=== PATIENT | female | born 1995 ===

== ENCOUNTER 2019-02-06 15:09 | Observation (INO) ==
[2019-02-06] MEDS ORDERED: 0.9 % SODIUM CHLORIDE 1,000 ML IV ONE ×2 (15:47→17:08)
--- NOTE | 2019-02-06 15:49 | Emergency Department Note ---
Abdominal Pain HPI - General Chief Complaint: Abdominal Pain Stated Complaint: ruq abd pain Time Seen by Provider: 02/06/19 15:47 Source: patient Mode of arrival: wheelchair Limitations: no limitations - History of Present Illness HPI Narrative: 23-year-old female with known cholelithiasis presenting 1 day after being seen at [facility] ER with right upper quadrant abdominal pain, nausea, vomiting 1, evaluated in the ER with CBC within normal white blood cell count, pain controlled with acute pain medications in the ER, discharged home in fair condition presenting today with worsening right upper quadrant abdominal pain rated 9 out of 10 with any activity, 6 out of 10 at rest worsened roughly 30-45 minutes after eating. Patient has nausea no emesis present. No fevers, chills, sweats. No diarrhea present. No other symptoms present. Cholelithiasis diagnosed during most recent . - Related Data Home Medications Medication Instructions Recorded Confirmed traMADol HCL [Ultram] 50 mg PO Q6H PRN 02/06/19 02/06/19 Allergies Allergy/AdvReac Type Severity Reaction Status Date / Time Pineapple Allergy Verified 02/06/19 15:11 hydromorphone [From Dilaudid] AdvReac Mild Itching Verified 02/06/19 17:07 ADHESIVES Allergy Unknown HIVES Uncoded 03/02/15 19:21 Review of Systems All systems ED: reviewed and negative except as stated. Abdominal Pain PMH - Past Medical History Attestation: Yes: The following information was validated with the patient. Medical history: Reports: other (cholelithiasis) - Social History Smoking status: Never smoker Physical Exam Limitations: no limitations General appearance: alert, anxious, in no apparent distress Head: atraumatic, normocephalic Eye: Present: normal appearance, PERRL, EOMI ENT: normal exam, normal oropharynx, mucous membranes moist Neck: Present: normal inspection, full ROM Chest: Present: normal inspection, symmetric chest wall rise Respiratory: Present: normal lung sounds bilaterally. Absent: respiratory distress, rales/crackles, wheezes Cardiovascular: Present: regular rate, normal rhythm, normal heart sounds Abdominal: Present: soft, tenderness, rebound, normal bowel sounds, Goodman's sign. Absent: distention, guarding, rigidity Course Vital Signs Temperature 98.9 F 02/06/19 15:09 Pulse Rate 89 02/06/19 15:09 Respiratory Rate 14 02/06/19 15:09 Blood Pressure 119/83 02/06/19 15:09 Pulse Oximetry (%) 97 02/06/19 15:09 Temperature 98.9 F 02/06/19 15:09 Pulse Rate 89 02/06/19 16:10 Respiratory Rate 14 02/06/19 15:09 Blood Pressure 127/80 02/06/19 16:01 Pulse Oximetry (%) 96 02/06/19 16:10 Abdominal Pain - MDM Narrative Medical decision making narrative: Patient underwent right upper quadrant abdominal ultrasound which demonstrated thickened GB wall and presence of multiple calculi. Underwent CBC with no leukocytosis. However based on failed outpatient tolerance of RUQ abdominal pain, general surgery consulted. patient admitted to surgical services for plans for cholecystectomy admitted in stable condition. - Lab Data Result diagrams: 02/06/19 15:59 02/06/19 15:59 Lab Results 02/06/19 02/06/19 02/06/19 Range/Units 15:41 15:59 15:59 WBC 4.4 L (4.5-11.0) K/mcL RBC 4.67 (4.00-5.20) M/mcL Hgb 14.7 (12.0-15.0) g/dL Hct 42.9 (36.0-48.0) % MCV 92.0 (80.0-100.0) fL MCH 31.6 (26.0-34.0) pg MCHC 34.3 (31.0-36.0) g/dL RDW 12.7 (11.5-14.5) % Plt Count 161 (140-440) K/mcL MPV 7.0 L (7.4-10.4) fL Gran % 64.2 (38.0-78.0) % Lymph % (Auto) 27.4 (15.5-49.0) % [place] % (Auto) 7.8 (1.0-12.0) % Eos % (Auto) 0.5 (0.0-7.0) % Baso % (Auto) 0.1 (0.0-2.0) % Gran # 2.8 (1.8-8.0) K/mcL Lymph # (Auto) 1.2 L (1.5-4.8) K/mcL Fannin # (Auto) 0.3 (0.1-0.9) K/mcL Eos # (Auto) 0 (0.0-0.7) K/mcL Baso # (Auto) 0 (0.0-0.3) K/mcL Sodium 137 (133-145) mmol/L Potassium 3.8 (3.3-5.1) mmol/L Chloride 105 (96-108) mmol/L Carbon Dioxide 20 L (22-30) mmol/L Anion Gap 12.0 (8-16) BUN 5 L (6-20) mg/dl Creatinine 0.6 (0.6-1.1) mg/dl GFR Calculation 128 Glucose 98 (70-105) mg/dL Calcium 9.0 (8.6-10.4) mg/dl Total Bilirubin 2.3 H (0.0-1.0) mg/dL AST 167 H (0-37) U/l ALT 164 H (0-40) U/l Alkaline Phosphatase 114 (39-117) U/L Total Protein 7.0 (5.9-8.4) gm/dL Albumin 4.3 (3.2-5.2) gm/dL Globulin 2.7 (2.2-3.7) gm/dL Albumin/Globulin Ratio 1.6 (1.0-2.3) Urine Color [place] Urine Appearance Hazy Urine pH 5.0 (5.0-9.0) Ur Specific [place] 1.021 (1.000-1.035) Urine Protein Neg (NEG) mg/dL Urine Glucose (UA) Negative (NEG) mg/dL Urine Ketones 5/tr A (NEG) mg/dL Urine Occult Blood Neg (<0.03) mg/dL Urine Nitrate Neg (NEG) Urine Bilirubin Neg (NEG) mg/dL Urine Urobilinogen Neg (NEG) mg/dL Ur Leukocyte Esterase Neg (NEG) /uL Urine RBC < 1 (0-1) /hpf Urine WBC 3 (0-4) /hpf Ur Squamous Epith Cells 2 (0-4) /hpf Urine Bacteria 0 (0) /hpf Urine Mucus Few (0) /hpf Ur Culture Indicated? No - Radiology Data Radiology results reviewed: Yes I reviewed the patient's radiology results. Gallbladder is not distended. There are multiple small stones in the dependent portion of the gallbladder. Gallbladder wall may be mildly thickened but this may also be a function of lack of distention. Gallbladder wall measures 3.5 mm. There is no pericholecystic fluid. Disposition Pt seen by FARM OPERATOR/PA only: No Clinical Impression: Acute cholecystitis Disposition: Xfer As Outpt/Obs ([facility]) Condition: Good
[2019-02-06] MEDS ORDERED: ONDANSETRON 4 MG/2 ML VIAL IV ONE ×2 (15:52→16:51)
[2019-02-06] MEDS ORDERED: HYDROmorphone 2 MG/ML VIAL IV PRN ×2 (15:52→17:05)
[2019-02-06 16:24] LABS: Appearance,Urine HAZY; Bacteria,Urine 0 /hpf (0); Bilirubin,Urine NEG (NEG); Color,Urine AMBER; Glucose,Urine (UA) NEGATIVE (NEG); Leukocyte Esterase,Urine NEG /uL (NEG); Mucus,Urine FEW /hpf (0); Protein,Urine NEG (NEG); Specific Gravity,Urine 1.021 (1.000-1.035); Urine Blood NEG mg/dL (<0.03); Urine RBC < 1 /hpf (0-1); Urine Squamous Epithelial Cell 2 /hpf (0-4); Urine WBC 3 /hpf (0-4); Urobilinogen,Urine NEG (NEG)
[2019-02-06 16:30] LABS: Basophils # (Auto) 0 K/mcL (0.0-0.3); Basophils % (Auto) 0.1 % (0.0-2.0); Eosinophils # (Auto) 0 K/mcL (0.0-0.7); Eosinophils % (Auto) 0.5 % (0.0-7.0); Granulocytes % (Auto) 64.2 % (38.0-78.0); Lymphocytes # (Auto) 1.2 K/mcL (1.5-4.8); Lymphocytes % (Auto) 27.4 % (15.5-49.0); Mean Corpuscular HGB Conc 34.3 g/dL (31.0-36.0); Monocytes # (Auto) 0.3 K/mcL (0.1-0.9); Monocytes % (Auto) 7.8 % (1.0-12.0); Platelet Count 161 K/mcL (140-440); RBC 4.67 M/mcL (4.00-5.20); Red Cell Distribution Width 12.7 % (11.5-14.5)
[2019-02-06 16:47] LABS: ALT/SGPT 164 U/l (0-40); Albumin 4.3 gm/dL (3.2-5.2); Albumin/Globulin Ratio 1.6 (1.0-2.3); Alkaline Phosphatase 114 U/L (39-117); Blood Urea Nitrogen 5 mg/dl (6-20)
--- NOTE | 2019-02-06 16:49 | Ultrasound Report ---
CLINICAL INFORMATION: Right upper quadrant. TECHNIQUE: Routine grayscale and color flow Doppler spectral imaging COMPARISON: Most recent previous CT scan dated 10/27/2018 FINDINGS: Patient has a history of gallstones. Gallbladder is not distended. There are multiple small stones in the dependent portion of the gallbladder. Gallbladder wall may be mildly thickened but this may also be a function of lack of distention. Gallbladder wall measures 3.5 mm. There is no pericholecystic fluid. Patient was medicated and could not be assessed for sonographic Goodman's sign Common bile duct measures 4 mm. No bile duct dilatation. Normal hepatopedal portal venous flow. Liver is negative. No focal intrahepatic abnormality. No pericholecystic fluid Visualized portions of the pancreas are negative. Right kidney measures 11.3 x 5.1 x 4.2 cm. No solid or cystic mass. No hydronephrosis IMPRESSION: 1. Cholelithiasis 2. Possible thickened gallbladder wall. Gallbladder is not distended and this is not accurately assessed Interpreted and Authenticated by: Mayo Ocasio 02/06/19
[2019-02-06] MEDS ORDERED: ONDANSETRON 4 MG/2 ML VIAL IV PRN ×2 (17:06→21:53)
[2019-02-06] MEDS ORDERED: ceFAZolin 1 GM VIAL IV ONE (17:38)
[2019-02-06] MEDS ORDERED: LACTATED RINGERS 1,000 ML IV ONE (17:42)
[2019-02-06] MEDS ORDERED: PROMETHAZINE 25 MG/ML VIAL IV ONE (21:47)
[2019-02-06] MEDS ORDERED: PROMETHAZINE 25 MG/ML VIAL ONE (22:04)
[2019-02-06] MEDS: 0.9 % SODIUM CHLORIDE 1,000 ML IV SCH (22:07)
--- NOTE | 2019-02-06 22:25 | General Surg History&Physical ---
History of Present Illness Patient information: Note initiated : 02/06/19 at 10:11 pm Service Date, if different from initiated Date: [] Patient: Yony Oliva a 23 y/o F admitted on 02/06/19 for ruq abd pain. Chief Complaint: [] HPI: Ms. Oliva is a 23 year old F admitted with acute cholecystitis with cholelithiasis. The patient has known history of gallstone disease which occurred during her recent . She had one attack about 6 months ago. She had onset of severe pain in the right upper quadrant radiating through to her back with associated nausea and vomiting on yesterday. She was seen in the emergency room at [facility] and treated symptomatically. Her symptoms recurred and she came to our emergency room and because of severe symptoms, she is admitted. There is some thickening of the gallbladder wall compatible with cholecystitis. Past History Past medical history: History of thrombocytopenia , but with normal platelet count at this time. depression Past surgical history: Tonsillectomy Appendectomy 2015 Past family history: Mother age 43 with autoimmune disease. Father is 44, without illness. Grandfather with diabetes Past social history: Denies , tobacco use. Weekly alcohol use Denies drug use Medications and Allergies Home Medications Medication Instructions Recorded Confirmed Type traMADol HCL [Ultram] 50 mg PO Q6H PRN 02/06/19 02/06/19 History Allergies Allergy/AdvReac Type Severity Reaction Status Date / Time Pineapple Allergy Verified 02/06/19 15:11 hydromorphone [From Dilaudid] AdvReac Mild Itching Verified 02/06/19 17:07 ADHESIVES Allergy Unknown HIVES Uncoded 03/02/15 19:21 Exam Temp Pulse Resp BP Pulse Ox 98.5 F 74 16 110/71 96 02/06/19 18:15 02/06/19 18:15 02/06/19 19:10 02/06/19 18:15 02/06/19 18:15 - General physical appearance well developed, well nourished, no distress - Eyes PERRL, normal ocular movement - ENT normal pinna, normal nares, normal mucosa, no hearing loss, no congestion - Head Head exam IM: Present: atraumatic, normocephalic - Neck no masses, no bruits, trachea midline, no lymphadenopathy, no venous distension - Cardiovascular Cardiovascular exam IM: Present: normal rate and rhythm - Respiratory normal expansion, normal respiratory effort, clear to percussion, clear to auscultation - Abdomen Abdomen: Present: tender (tenderness in epigastrium and bilateral upper quadrants; guarding with rebound in right upper quadrant; good active bowel sounds), bowel sounds Hernia: Present: none - Genitourinary Present: normal external genitalia - Integumentary Present: no rash, no growths, no abnormal pigmentation - Neurologic Present: normal coordination, normal sensation - Musculoskeletal Present: normal gait, normal posture - Psychiatric Present: oriented to time, oriented to person, oriented to place, speech is normal, memory intact Assessment and Plan (1) Cholelithiasis and acute cholecystitis without obstruction Symptomatic treatment of pain, nausea and vomiting. Zosyn 3.375 g IV every 6 hours Schedule for laparoscopic cholecystectomy tomorrow at noon Status: Acute (2) depression Status: Acute
[2019-02-06] MEDS ORDERED: fentaNYL 100 MCG/2 ML VIAL IV ONE (22:30)
[2019-02-06] MEDS: fentaNYL 100 MCG/2 ML VIAL IV PRN (22:32)
[2019-02-06] MEDS: 0.9 % SODIUM CHLORIDE 10 ML SYRINGE IV SCH (22:42)
[2019-02-06] MEDS: PIPERACILLIN SODIUM/TAZOBACTAM 3.375 GM in DEXTROSE 5% IN WATER 50 ML IV SCH (22:57)
[2019-02-07] MEDS: PIPERACILLIN SODIUM/TAZOBACTAM 3.375 GM in DEXTROSE 5% IN WATER 50 ML IV SCH ×3 (04:28→18:59)
[2019-02-07 05:42] LABS: Basophils # (Auto) 0 K/mcL (0.0-0.3); Basophils % (Auto) 0.3 % (0.0-2.0); Eosinophils # (Auto) 0 K/mcL (0.0-0.7); Eosinophils % (Auto) 1.3 % (0.0-7.0); Granulocytes % (Auto) 43.5 % (38.0-78.0); Lymphocytes # (Auto) 1.5 K/mcL (1.5-4.8); Lymphocytes % (Auto) 47.1 % (15.5-49.0); Mean Cell Volume 93.4 fL (80.0-100.0); Mean Corpuscular HGB Conc 34.3 g/dL (31.0-36.0); Monocytes # (Auto) 0.3 K/mcL (0.1-0.9); Monocytes % (Auto) 7.8 % (1.0-12.0); Platelet Count 129 K/mcL (140-440); RBC 4.18 M/mcL (4.00-5.20); Red Cell Distribution Width 13.1 % (11.5-14.5)
[2019-02-07] MEDS: 0.9 % SODIUM CHLORIDE 10 ML SYRINGE IV SCH ×3 (06:02→21:58)
[2019-02-07 06:11] LABS: ALT/SGPT 191 U/l (0-40); Albumin 3.7 gm/dL (3.2-5.2); Albumin/Globulin Ratio 1.7 (1.0-2.3); Alkaline Phosphatase 116 U/L (39-117); Bilirubin,Direct 1.5 mg/dL (0.0-0.3); Blood Urea Nitrogen 4 mg/dl (6-20); Gamma Glutamyl Transpeptidase 150 U/L (5-36)
[2019-02-07] MEDS ORDERED: diphenhydrAMINE 50 MG/ML VIAL IV PRN (10:39)
[2019-02-07] MEDS ORDERED: PROMETHAZINE 25 MG/ML VIAL IV PRN (10:39)
[2019-02-07] MEDS ORDERED: NALOXONE HCL 0.4 MG/ML VIAL IV PRN (10:39)
[2019-02-07] MEDS ORDERED: BENZOCAINE/MENTHOL 1 LOZENGE PO PRN (10:39)
[2019-02-07] MEDS ORDERED: MEPERIDINE 25 MG/ML SYRINGE IV PRN (10:39)
[2019-02-07] MEDS ORDERED: ONDANSETRON 4 MG/2 ML VIAL IV PRN (10:39)
[2019-02-07] MEDS ORDERED: LACTATED RINGERS 250 ML IV PRN (10:39)
[2019-02-07] MEDS ORDERED: IPRATROPIUM/ALBUTEROL 3 ML AMPUL.NEB NEB PRN (10:39)
[2019-02-07] MEDS ORDERED: KETOROLAC 30 MG/ML VIAL IV PRN (10:39)
[2019-02-07] MEDS ORDERED: ACETAMINOPHEN 1,000 MG/100 ML BOTTLE IV ONE ×2 (10:39→17:14)
[2019-02-07] MEDS ORDERED: FLUMAZENIL 0.1 MG/ML ML IV PRN (10:39)
[2019-02-07] MEDS ORDERED: LACTATED RINGERS 1,000 ML IV SCH (10:45)
[2019-02-07] MEDS ORDERED: PROPOFOL 200 MG/20 ML VIAL IV ONE (10:50)
[2019-02-07] MEDS ORDERED: SUGAMMADEX SODIUM 200 MG/2 ML VIAL IV ONE (10:50)
[2019-02-07] MEDS ORDERED: LIDOCAINE HCL/PF 100 MG/5 ML SYRINGE IV ONE (10:50)
[2019-02-07] MEDS ORDERED: MIDAZOLAM 5 MG/5 ML VIAL IV ONE (10:50)
[2019-02-07] MEDS ORDERED: ONDANSETRON 4 MG/2 ML VIAL IV ONE (10:50)
[2019-02-07] MEDS ORDERED: fentaNYL 250 MCG/5 ML VIAL IV ONE (10:50)
[2019-02-07] MEDS ORDERED: ROCURONIUM 10 MG/ML ML IV ONE (10:50)
[2019-02-07] MEDS ORDERED: DEXAMETHASONE 10 MG/ML VIAL IV ONE (10:50)
--- NOTE | 2019-02-07 11:47 | Brief Operative Note ---
Date of procedure: 02/07/19 Pre-op diagnosis: cholelithiasis with cholecystitis Post-op diagnosis: other (cholelithiasis with acute cholecystitis) Procedure: LAPAROSCOPIC CHOLECYSTECTOMY Grafts/Implants: No Anesthesia: GETA Findings: DILATED EDEMATOUS GALLBLADDER WITH CYSTIC DUCT OBSTRUCTION BY STONE IMPACTED IN NECK OF GALLBLADDER Complications: none Surgeon: Percy Jauregui Estimated blood loss (cc): 10 Specimens Removed/Pathology: other (GALLBLADDER) Condition: stable Disposition: PACU
[2019-02-07] MEDS: fentaNYL 100 MCG/2 ML VIAL IV PRN ×2 (12:06→12:22)
[2019-02-07] MEDS: ACETAMINOPHEN 1,000 MG in PREMIX 1 BAG IV SCH ×2 (12:35→18:34)
[2019-02-07] MEDS: 0.9 % SODIUM CHLORIDE 1,000 ML IV SCH (12:50)
[2019-02-07] MEDS: METOCLOPRAMIDE 10 MG/2 ML VIAL IV SCH ×2 (12:58→18:54)
[2019-02-08] MEDS ORDERED: ACETAMINOPHEN 1,000 MG/100 ML BOTTLE IV ONE ×2 (00:46→05:45)
[2019-02-08] MEDS: ACETAMINOPHEN 1,000 MG in PREMIX 1 BAG IV SCH ×2 (00:50→05:49)
[2019-02-08] MEDS: METOCLOPRAMIDE 10 MG/2 ML VIAL IV SCH ×3 (00:52→12:18)
[2019-02-08] MEDS: fentaNYL 100 MCG/2 ML VIAL IV PRN ×2 (01:22→12:37)
[2019-02-08] MEDS: 0.9 % SODIUM CHLORIDE 1,000 ML IV SCH (01:27)
[2019-02-08] MEDS: PIPERACILLIN SODIUM/TAZOBACTAM 3.375 GM in DEXTROSE 5% IN WATER 50 ML IV SCH ×3 (01:27→12:18)
[2019-02-08 05:12] LABS: Basophils # (Auto) 0 K/mcL (0.0-0.3); Basophils % (Auto) 0.1 % (0.0-2.0); Eosinophils # (Auto) 0 K/mcL (0.0-0.7); Eosinophils % (Auto) 0 % (0.0-7.0); Granulocytes % (Auto) 82.9 % (38.0-78.0); Lymphocytes # (Auto) 0.7 K/mcL (1.5-4.8); Mean Cell Volume 93.2 fL (80.0-100.0); Mean Corpuscular HGB Conc 34.3 g/dL (31.0-36.0); Monocytes # (Auto) 0.3 K/mcL (0.1-0.9); Platelet Count 141 K/mcL (140-440); RBC 4.26 M/mcL (4.00-5.20); Red Cell Distribution Width 12.6 % (11.5-14.5)
[2019-02-08 06:04] LABS: ALT/SGPT 237 U/l (0-40); Albumin 3.7 gm/dL (3.2-5.2); Albumin/Globulin Ratio 1.5 (1.0-2.3); Alkaline Phosphatase 122 U/L (39-117); Bilirubin,Direct 1.1 mg/dL (0.0-0.3); Blood Urea Nitrogen 3 mg/dl (6-20); Gamma Glutamyl Transpeptidase 154 U/L (5-36); Uric Acid 1.8 mg/dL (2.5-8.0)
[2019-02-08] MEDS: 0.9 % SODIUM CHLORIDE 10 ML SYRINGE IV SCH ×2 (06:51→14:18)
[2019-02-08] MEDS ORDERED: MAGNESIUM SULFATE 32.48 MEQ in DEXTROSE 5% IN WATER 50 ML IV ONE (08:45)
[2019-02-08] MEDS ORDERED: MAGNESIUM SULFATE 4 GM/100 ML BAG IV ONE (09:00)
--- NOTE | 2019-02-08 16:38 | Discharge Summary ---
Providers - Providers Patient information: Note initiated : 02/08/19 at 4:36 pm Service Date, if different from initiated Date: [] Patient: Yony Oliva 23 y/o F admitted on 02/06/19 for ruq abd pain. Chief Complaint: [] Date of admission: 02/06/19 Discharge date: 02/08/19 Attending physician: Percy Jauregui Hospitalization Hospital course: 23-year-old female with history of known gallstone disease who presented with increasing abdominal pain, nausea, vomiting. She was noted to have an acute abdomen and evidence of acute cholecystitis. She was admitted, started on antibiotics and on 07 February underwent laparoscopic cholecystectomy. She is doing well. There is a slight bump in her transaminases, but there was no evidence of common bile duct dilation. Patient is clinically improved and is stable for discharge. Discharge diagnosis: acute cholecystitis with cholelithiasis Reason for admission: recurrent abdominal pain with nausea and vomiting Procedures: Laparoscopic cholecystectomy Pertinent studies/significant findings: None Complications: None Exam Temp Pulse Resp BP Pulse Ox 98.4 F 65 18 118/75 96 02/08/19 12:00 02/08/19 12:00 02/08/19 12:00 02/08/19 12:00 02/08/19 12:00 - General physical appearance well developed, well nourished, no distress - Eyes PERRL, normal ocular movement. negative: icteric - ENT normal pinna, normal nares, normal mucosa, no hearing loss, no congestion - Head Head exam IM: Present: atraumatic, normocephalic - Neck no masses, no bruits, trachea midline, no lymphadenopathy, no venous distension - Cardiovascular Cardiovascular exam IM: Present: normal rate and rhythm - Respiratory normal expansion, normal respiratory effort, clear to percussion, clear to auscultation - Abdomen Abdomen: Present: soft, non tender, tender (mild tenderness of the port sites. Otherwise benign abdomen), bowel sounds Hernia: Present: none - Genitourinary Present: normal external genitalia - Integumentary Present: no rash, no growths, no abnormal pigmentation - Neurologic Present: normal coordination, normal sensation - Musculoskeletal Present: normal gait, normal posture - Psychiatric Present: oriented to time, oriented to person, oriented to place, speech is normal, memory intact Discharge Plan - Patient/Caregiver Discharge Instructions Activity: increase activity as tolerated Diet: Low Fat Additional Instructions: Patient is to have CMP performed one day prior to returning to the office Prescriptions: HYDROcodone/APAP 10/325MG [Mck[place] 10-325Mg] 1 tab PO Q4H PRN #42 tab PRN Reason: Pain - Follow up Plan Follow up with: Percy Jauregui MD [Physician] - 02/23/19 8:45 am Disposition: Home, Self-Care Prognosis: Good Rehab Potential: Good I certify that the patient requires SNF services.: No Overall status at discharge: patient is progressing back to baseline Pending Studies Resuscitation Status Full Code Diet Regular Diet Start FriFebruary 08 0741 Fentanyl (Sublimaze) 25 mcg IV Q2HP PRN PRN Reason: PAIN LEVEL > 6 Last Admin: 02/08/19 12:37 Dose: 25 mcg Documented by: Admin: 02/08/19 01:22 Dose: 25 mcg Documented by: Admin: 02/06/19 22:32 Dose: 25 mcg Documented by: ZACHARIAH Sodium Chloride (Sodium Chloride 0.9%) 1,000 mls @ 75 mls/hr IV .[id number] [facility] Last Admin: 02/08/19 01:27 Dose: 75 mls/hr Documented by: Infusion: 02/08/19 01:27 Dose: 75 mls/hr Documented by: Admin: 02/07/19 12:50 Dose: 75 mls/hr Documented by: Infusion: 02/07/19 10:40 Dose: 0 mls/hr Documented by: Admin: 02/06/19 22:07 Dose: 75 mls/hr Documented by: ZACHARIAH Piperacillin Sod/Tazobactam (Sod 3.375 gm/ Dextrose) 50 mls @ 100 mls/hr IV Q6H [facility]; Protocol Last Infusion: 02/08/19 12:48 Dose: 0 mls/hr Documented by: Admin: 02/08/19 12:18 Dose: 100 mls/hr Documented by: Infusion: 02/08/19 07:21 Dose: 0 mls/hr Documented by: Admin: 02/08/19 06:51 Dose: 100 mls/hr Documented by: Infusion: 02/08/19 05:52 Dose: 0 mls/hr Documented by: Admin: 02/08/19 01:27 Dose: 100 mls/hr Documented by: Infusion: 02/07/19 21:58 Dose: 0 mls/hr Documented by: Admin: 02/07/19 18:59 Dose: 100 mls/hr Documented by: Infusion: 02/07/19 11:45 Dose: 100 mls/hr Documented by: Admin: 02/07/19 11:15 Dose: 100 mls/hr Documented by: JUVENTINO Metoclopramide HCl (Reglan) 10 mg IV Q6 [facility] Last Admin: 02/08/19 12:18 Dose: 10 mg Documented by: Admin: 02/08/19 05:52 Dose: 10 mg Documented by: Admin: 02/08/19 00:52 Dose: 10 mg Documented by: Admin: 02/07/19 18:54 Dose: 10 mg Documented by: Admin: 02/07/19 12:58 Dose: 10 mg Documented by: CHUNG Morphine Sulfate (Morphine) 2 - 4 mg IV Q2HP PRN PRN Reason: PAIN LEVEL > 6 Last Admin: 02/08/19 14:45 Dose: 4 mg Documented by: Admin: 02/08/19 11:21 Dose: 2 mg Documented by: Admin: 02/08/19 05:53 Dose: 2 mg Documented by: Admin: 02/07/19 21:57 Dose: 2 mg Documented by: Admin: 02/07/19 17:20 Dose: 2 mg Documented by: [email or web address] Admin: 02/07/19 15:00 Dose: 4 mg Documented by: Admin: 02/07/19 12:56 Dose: 4 mg Documented by: Admin: 02/07/19 09:43 Dose: 4 mg Documented by: Admin: 02/07/19 06:58 Dose: 2 mg Documented by: Admin: 02/07/19 04:29 Dose: 2 mg Documented by: ZACHARIAH Sodium Chloride (Saline Flush) 10 ml IV Q8 [facility] Last Admin: 02/08/19 14:18 Dose: Not Given Documented by: Admin: 02/08/19 06:51 Dose: Not Given Documented by: Admin: 02/07/19 21:58 Dose: Not Given Documented by: Admin: 02/07/19 13:12 Dose: Not Given Documented by: CHUNG Shift Summary 02/08/19 04:49 Shift Summary by Marianne Rodriguez AA&O x4; VSS on RA, afebrile; 4 lap sites w/ susanna covered with Tegaderm; pain managed with scheduled Ofirmev, prn morphine 2 mg x1 and prn 25mcg fentanyl x1; tolerating full liquid diet, no nausea reported; SBA to BR voiding well; will update at bedside. Initialized on 02/08/19 04:49 - END OF NOTE
--- NOTE | 2019-02-10 07:19 | Surgical Pathology Report ---
HISTOLOGY SPECIMEN MICROSCOPIC DIAGNOSIS GALLBLADDER, CHOLECYSTECTOMY: -- CHRONIC CHOLECYSTITIS WITH CHOLELITHIASIS. -- SINGLE BENIGN LYMPH NODE WITH REACTIVE CHANGE. (ACP:hollis) PROCEDURAL IMPRESSION Acute cholecystitis without obstruction. GROSS DESCRIPTION Received in formalin labeled gallbladder, is a 2.6 x 2.6 cm green-taveras gallbladder. The serosal surface is smooth and glistening. There are two metal clips present; however the duct is not clipped. The lumen contains viscous green fluid and multiple smooth, yellow multifaceted stones ranging in size from 0.2 to 0.5 cm in greatest dimension. Several of the stones are found lodged within the cystic duct. The mucosa is dark green and velvety. The wall is up to 0.4 cm thick. Adjacent to the cystic ducts there is a 1.2 x 0.6 x 0.4 cm firm taveras nodule. Rubber Splicer sections of gallbladder and entire described nodule submitted - one cassette. (STS:hollis) Electronically Signed by: Reji Gaines M.D.
--- NOTE | 2019-02-10 11:09 | Operative Note ---
DATE OF OPERATION: 02/07/2019 PREOPERATIVE DIAGNOSIS: Cholelithiasis with cholecystitis. POSTOPERATIVE DIAGNOSIS: Cholelithiasis with acute cholecystitis. PROCEDURE: Laparoscopic cholecystectomy. SURGEON: Percy Jauregui M.D. FINDINGS: Dilated edematous gallbladder with cystic duct obstruction by a large stone impacted in the neck of the gallbladder. DESCRIPTION OF PROCEDURE: Under general anesthesia, the patient's abdomen was prepped and draped in a sterile field. A time-out procedure was carried out as per protocol. A supraumbilical incision was made and Veress needle was inserted uneventfully. Abdomen was insufflated with 2 liters of CO2. A 12 mm port was placed. Laparoscope was placed. A large dilated edematous thickened gallbladder was noted. Under videoscopic guidance, a 12 mm and two 5 mm ports were placed in the right subcostal region. Using blunt dissection, the cystic duct and cystic artery branch were definitively identified and followed back to the gallbladder. Cystic duct was clipped with five clips and divided. Cystic artery was clipped with four clips and divided. There was very thickened posterior connection. It was extremely edematous. The gallbladder was from the hepatic bed using electrocautery. Hemostasis was achieved with electrocautery. The gallbladder was placed in an Endopouch and retrieved. Irrigation was carried out. More hemostasis was achieved. It was felt that she did not need to have a drain. CO2 was allowed to escape from the abdomen and the ports were removed. Fascia at the umbilicus was closed with interrupted 0 Vicryl. Skin incisions were closed with susanna. Tegaderm dressings were placed. The patient was awakened and transferred to a bed and taken to the postanesthetic care unit in stable, satisfactory condition. LCS:quinn Job ID: [id number] Doc ID: [id number] Percy Jauregui M.D.
== END 2019-02-08 17:55 | disposition home or self-care (01) ==
LOC: MEDSUR 15:09 → ED 15:09 → MEDSUR 17:53
PROVIDERS: ADMIT Family Medicine Adult Medicine; ATTEND Family Medicine Adult Medicine

== ENCOUNTER 2019-02-18 23:03 | Inpatient (IN) ==
[2019-02-18] MEDS ORDERED: ONDANSETRON 4 MG ODT TABLET SL ONE (23:09)
[2019-02-18] MEDS ORDERED: ONDANSETRON 4 MG/2 ML VIAL IV ONE (23:33)
[2019-02-18] MEDS ORDERED: 0.9 % SODIUM CHLORIDE 2,000 ML IV ONE (23:33)
[2019-02-18] MEDS ORDERED: HYDROmorphone 2 MG/ML VIAL IV PRN (23:33)
--- NOTE | 2019-02-18 23:38 | Emergency Department Note ---
Abdominal Pain HPI - General Chief Complaint: Abdominal Pain Stated Complaint: nausea, vomiting, abd pain Time Seen by Provider: 02/18/19 23:29 Source: patient Mode of arrival: ambulatory Limitations: no limitations - History of Present Illness HPI Narrative: 23-year-old female comes in for severe belly pain nausea and vomiting status post gallbladder removal 11 days ago. Apparently she had some nausea vomiting a couple days ago but this resolved with Zofran. However she ran out of Zofran and then today developed sudden onset nausea vomiting worsening. After vomiting several times she developed severe belly pain as well and she cannot get comfor table. No fever. Unknown trigger. - Related Data Home Medications Medication Instructions Recorded Confirmed traMADol HCL [Ultram] 50 mg PO Q6H PRN 02/06/19 02/06/19 Tri-Sprintec Tablet 02/07/19 Previous Rx's Medication Instructions Recorded HYDROcodone/APAP 10/325MG [[place] 1 tab PO Q4H PRN #42 tab 02/08/19 10-325Mg] Allergies Allergy/AdvReac Type Severity Reaction Status Date / Time adhesive tape AdvReac Mild Hives Verified 02/07/19 07:08 hydromorphone [From Dilaudid] AdvReac Mild Itching Verified 02/06/19 17:07 Review of Systems All systems ED: reviewed and negative except as stated. Abdominal Pain PMH - Past Medical History Attestation: Yes: The following information was validated with the patient. Medical history: Reports: other (Thrombocytopenia now resolved) Surgical history ED: Reports: appendectomy, cholecystectomy, tonsillectomy - Social History Smoking status: Never smoker Physical Exam Writhing in pain. Normal cephalic atraumatic. Conjunctive are clear sclerae nonicteric. No nasal discharge or congestion. Oropharynx with dry buccal mucosa. Heart is tachycardic. Lungs are clear to auscultation bilaterally without wheezes rales rhonchi or respiratory distress. Abdomen diffusely tender. Wound site are intact with bandages in place. Small amount of dried blood over the incision sites. No pedal edema. Alert and able to answer questions Limitations: no limitations Course Vital Signs Temperature 97.1 F 02/18/19 23:03 Pulse Rate 88 02/18/19 23:03 Respiratory Rate 18 02/18/19 23:03 Blood Pressure 123/84 02/18/19 23:03 Pulse Oximetry (%) 98 02/18/19 23:03 Temperature 97.1 F 02/18/19 23:03 Pulse Rate 64 02/19/19 01:18 Respiratory Rate 16 02/19/19 01:18 Blood Pressure 122/66 02/19/19 01:16 Pulse Oximetry (%) 98 02/19/19 01:18 Abdominal Pain - Lab Data Lab results reviewed: Yes I reviewed the patient's lab results. Result diagrams: 02/18/19 23:48 02/18/19 23:48 Lab Results 02/18/19 02/18/19 02/18/19 Range/Units 23:48 23:48 23:48 WBC 5.8 (4.5-11.0) K/mcL RBC 5.27 H (4.00-5.20) M/mcL Hgb 16.3 H (12.0-15.0) g/dL Hct 49.3 H (36.0-48.0) % POC Hct 52.0 H (36.0-48.0) % MCV 93.5 (80.0-100.0) fL MCH 31.0 (26.0-34.0) pg MCHC 33.1 (31.0-36.0) g/dL RDW 13.3 (11.5-14.5) % Plt Count 192 (140-440) K/mcL MPV 7.0 L (7.4-10.4) fL Gran % 79.5 H (38.0-78.0) % Lymph % (Auto) 12.9 L (15.5-49.0) % Henry % (Auto) 7.1 (1.0-12.0) % Eos % (Auto) 0.4 (0.0-7.0) % Baso % (Auto) 0.1 (0.0-2.0) % Gran # 4.6 (1.8-8.0) K/mcL Lymph # (Auto) 0.7 L (1.5-4.8) K/mcL Henry # (Auto) 0.4 (0.1-0.9) K/mcL Eos # (Auto) 0 (0.0-0.7) K/mcL Baso # (Auto) 0 (0.0-0.3) K/mcL VBG Lactic Acid 0.9 (0.5-2.0) mmol/L POC Sodium 136 (133-145) mmol/L Sodium 136 (133-145) mmol/L POC Potassium 3.9 (3.3-5.1) mmol/L Potassium 4.0 (3.3-5.1) mmol/L POC Chloride 100 (96-108) mmol/L Chloride 96 (96-108) mmol/L Carbon Dioxide 25 (22-30) mmol/L POC Total CO2 26 (22-30) mmol/L Anion Gap 15.0 (8-16) POC BUN 5 L (6-20) mg/dl BUN 6 (6-20) mg/dl Creatinine 0.6 (0.6-1.1) mg/dl POC Creatinine 0.6 (0.6-1.1) mg/dl GFR Calculation 128 Glucose 120 H (70-105) mg/dL POC Glucose 123 H (70-105) mg/dL Calcium 10.0 (8.6-10.4) mg/dl POC WB Ioniz Calcium 1.17 (1.16-1.32) mmol/L Total Bilirubin 4.7 H (0.0-1.0) mg/dL AST 265 H (0-37) U/l ALT 563 H (0-40) U/l Alkaline Phosphatase 317 H (39-117) U/L Total Protein 7.9 (5.9-8.4) gm/dL Albumin 4.7 (3.2-5.2) gm/dL Globulin 3.2 (2.2-3.7) gm/dL Albumin/Globulin Ratio 1.5 (1.0-2.3) Lipase 9610 H (7-60) U/L - Radiology Data Radiology results reviewed: Yes I reviewed the patient's radiology results. X-ray of the abdomen shows surgical clips but no free air Disposition Pt seen by GL[employer]ING PIL[employer] INSTRUCTOR/PA only: No Clinical Impression: Choledocholithiasis Pancreatitis Qualifiers: Chronicity: acute Pancreatitis type: biliary Acute pancreatitis complication: unspecified Qualified Code(s): K85.10 - Biliary acute pancreatitis without necrosis or infection Summary: Work-up ordered with laboratory and x-ray. Treatment ordered with IV fluids Zofran and morphine She was feeling much better. Laboratory showed elevated bilirubin and liver enzymes; markedly elevated l ipase. Discussed situation with Dr. Dakota Jauregui, general surgeon, who agreed to accept the patient. Will write holding orders. Disposition: Xfer As Inpt ([facility]) Condition: Fair Referrals: Mayo Little DO [Primary Care Provider] - Dakota Jauregui MD [Physician] - Esau Jones MD [Physician] -
[2019-02-18 23:56] LABS: POC Blood Urea Nitrogen 5 mg/dl (6-20); POC CO2 26 mmol/L (22-30); POC Calcium, Ionized 1.17 mmol/L (1.16-1.32); POC Chloride 100 mmol/L (96-108); POC Creatinine 0.6 mg/dl (0.6-1.1); POC Glucose, Random 123 mg/dL (70-105); POC Potassium 3.9 mmol/L (3.3-5.1); POC Sodium 136 mmol/L (133-145)
[2019-02-19 00:25] LABS: Basophils # (Auto) 0 K/mcL (0.0-0.3); Basophils % (Auto) 0.1 % (0.0-2.0); Eosinophils # (Auto) 0 K/mcL (0.0-0.7); Eosinophils % (Auto) 0.4 % (0.0-7.0); Granulocytes % (Auto) 79.5 % (38.0-78.0); Hematocrit 49.3 % (36.0-48.0); Hemoglobin 16.3 g/dL (12.0-15.0); Lymphocytes # (Auto) 0.7 K/mcL (1.5-4.8); Lymphocytes % (Auto) 12.9 % (15.5-49.0); Mean Cell Volume 93.5 fL (80.0-100.0); Mean Corpuscular HGB Conc 33.1 g/dL (31.0-36.0); Monocytes # (Auto) 0.4 K/mcL (0.1-0.9); Monocytes % (Auto) 7.1 % (1.0-12.0); Platelet Count 192 K/mcL (140-440); RBC 5.27 M/mcL (4.00-5.20); Red Cell Distribution Width 13.3 % (11.5-14.5); WBC 5.8 K/mcL (4.5-11.0)
[2019-02-19 00:51] LABS: ALT/SGPT 563 U/l (0-40); AST/SGOT 265 U/l (0-37); Albumin 4.7 gm/dL (3.2-5.2); Albumin/Globulin Ratio 1.5 (1.0-2.3); Alkaline Phosphatase 317 U/L (39-117); Bilirubin,Total 4.7 mg/dL (0.0-1.0); Blood Urea Nitrogen 6 mg/dl (6-20); Carbon Dioxide 25 mmol/L (22-30); Chloride 96 mmol/L (96-108); Globulin 3.2 gm/dL (2.2-3.7); Glomerular Filtration Rate 128; Glucose 120 mg/dL (70-105); Sodium 136 mmol/L (133-145)
[2019-02-19 01:03] LABS: Lipase 9610 U/L (7-60)
[2019-02-19] MEDS ORDERED: NALOXONE HCL 0.4 MG/ML VIAL IV PRN (01:25)
[2019-02-19] MEDS ORDERED: ACETAMINOPHEN 325 MG TABLET PO PRN (01:25)
[2019-02-19] MEDS ORDERED: ONDANSETRON 4 MG/2 ML VIAL IV PRN (01:25)
[2019-02-19] MEDS: LACTATED RINGERS 1,000 ML IV SCH ×3 (02:28→19:20)
--- NOTE | 2019-02-19 04:08 | XRay Report ---
CLINICAL INFORMATION: abd pain s/p gallbladder repair COMPARISON: None. FINDINGS: The stool gas pattern is unremarkable. There is no free air, soft tissue mass, organomegaly or pathologic calcification. IMPRESSION: Normal abdomen Interpreted and Authenticated by: Mayo Bunch 02/19/19
[2019-02-19 09:14] LABS: ALT/SGPT 426 U/l (0-40); AST/SGOT 161 U/l (0-37); Albumin/Globulin Ratio 1.6 (1.0-2.3); Alkaline Phosphatase 247 U/L (39-117); Amylase 588 U/L (28-100); Bilirubin,Direct 0.8 mg/dL (0.0-0.3); Blood Urea Nitrogen 5 mg/dl (6-20); Carbon Dioxide 24 mmol/L (22-30); Chloride 98 mmol/L (96-108); Gamma Glutamyl Transpeptidase 434 U/L (5-36); Globulin 2.5 gm/dL (2.2-3.7); Glomerular Filtration Rate 136; Glucose 106 mg/dL (70-105); Lactate Dehydrogenase 133 U/L (94-250); Magnesium 1.7 mg/dL (1.6-2.5); Phosphorous 3.4 mg/dL (2.7-4.5); Potassium 4.1 mmol/L (3.3-5.1); Sodium 134 mmol/L (133-145); Triglycerides 158 mg/dl (<150); Uric Acid 4.1 mg/dL (2.5-8.0)
--- NOTE | 2019-02-19 09:23 | Magnetic Resonance Report ---
CLINICAL INFORMATION: Cholecystectomy 12 days prior with increasing pain nausea and vomiting increasing bili ribbon COMPARISON: None. TECHNIQUE: MRCP was performed using 3D FRFSE respiratory triggered and single-shot FSE thick slab technique. Axial T2 SSFSE and coronal SSFSE images were obtained through the upper abdomen as well. FINDINGS: Liver is normal in size configuration and signal intensity without focal lesion. The gallbladder is surgically absent. Intrahepatic common hepatic, bile ducts are normal in caliber with CBD diameter of 6 mm. Pancreatic duct is is also normal in contour and caliber with a diameter of 2 mm. Both kidneys, adrenal glands, spleen pancreas and aorta are normal in size configuration and signal intensity. The small amount of fluid in the yokasta hepatis presumably represents postsurgical seroma IMPRESSION: Normal exam. The patient will be recalled for additional imaging sequences following injection of Eovist. This MR imaging agent is preferentially excreted by the bile ducts. Dynamic images will be obtained to determine the integrity of the biliary epithelium (i.e. presence or absence of a bile leak) Interpreted and Authenticated by: Mayo Bunch 02/19/19
[2019-02-19 09:27] LABS: Basophils # (Auto) 0 K/mcL (0.0-0.3); Basophils % (Auto) 0.3 % (0.0-2.0); Eosinophils # (Auto) 0 K/mcL (0.0-0.7); Eosinophils % (Auto) 0.7 % (0.0-7.0); Granulocytes % (Auto) 60.1 % (38.0-78.0); Hematocrit 42.9 % (36.0-48.0); Hemoglobin 14.2 g/dL (12.0-15.0); Lymphocytes # (Auto) 1.3 K/mcL (1.5-4.8); Lymphocytes % (Auto) 32.5 % (15.5-49.0); Mean Corpuscular HGB Conc 33.1 g/dL (31.0-36.0); Mean Platelet Volume 7.1 fL (7.4-10.4); Monocytes # (Auto) 0.2 K/mcL (0.1-0.9); Monocytes % (Auto) 6.4 % (1.0-12.0); Platelet Count 153 K/mcL (140-440); RBC 4.52 M/mcL (4.00-5.20); Red Cell Distribution Width 13.4 % (11.5-14.5); WBC 3.9 K/mcL (4.5-11.0)
[2019-02-19 09:41] LABS: Lipase 2058 U/L (7-60)
[2019-02-19] MEDS ORDERED: GADOXETATE DISODIUM 2.5 MMOL/10 ML VIAL IV ONE (11:17)
--- NOTE | 2019-02-19 12:11 | General Surg History&Physical ---
History of Present Illness Patient information: Note initiated : 02/19/19 at 12:07 pm Service Date, if different from initiated Date: [] Patient: Yony Oliva a 23 y/o F admitted on 02/19/19 for nausea, vomiting, abd pain. Chief Complaint: [abdominal pain, nausea and vomiting] HPI: Ms. Oliva is a 23 year old F admitted with acute pancreatitis thought to be biliary in origin. The patient presented to the hospital on 11 day with right upper quadrant pain and was found to have acute cholecystitis with cholelithias is. She had multiple stones of variable size. The patient developed a gallstone disease while 6 months prior to admission. She was admitted and underwent laparoscopic cholecystectomy on February 14. She was found to have moderately severely inflamed dilated thickened gallbladder with stone impacted in the neck of the gallbladder causing complete obstruction. Uneventful cholecystectomy was done. She was discharged home the following day. She states that she did well until 2 days prior to admission when she developed some nausea. This nausea progressed and she had extreme nausea with vomiting and severe abdominal pain which prompted her to come to the emergency room. She was in moderately severe distress, seen last evening. Her white count was 5.8 and her hemoglobin was 16.3. Liver panel revealed bilirubin 4.7, AST 265, ALT 563, alkaline phosphatase 317 and lipase of 9610. She has been treated with being nothing by mouth and given analgesics and anti-medics. She feels better at this time. Follow-up liver panel shows bilirubin down to 2 with AST 161, ALT 426, alkaline phosphatase 247, lipase 2058 and amylase 588. Patient is felt to have suspected distal common bile duct stone. however, MRCP today shows a 6 mm common bile duct without filling defects. In spite of this, my concern is that she has a very small distal stone causing the acute pancreatitis and elevation in transaminases. Past History Past medical history: Prior history of thrombocytopenia of but resolved. depression, resolved Past surgical history: Appendectomy 2016. Cholecystectomy. 07 Feb 2019 Past family history: Mother with autoimmune disease. In follow-up of diabetes. Father without illness Past social history: Denies tobacco use Denies drug use. Weekly alcohol use Medications and Allergies Home Medications Medication Instructions Recorded Confirmed Type HYDROcodone/APAP 10/325MG [[place] 1 tab PO Q4H PRN #42 tab 02/08/19 02/19/19 Rx 10-325Mg] Allergies Allergy/AdvReac Type Severity Reaction Status Date / Time adhesive tape AdvReac Mild Hives Verified 02/07/19 07:08 hydromorphone [From Dilaudid] AdvReac Mild Itching Verified 02/06/19 17:07 Exam Temp Pulse Resp BP Pulse Ox 97.8 F 89 16 110/73 94 02/19/19 06:46 02/19/19 04:00 02/19/19 06:46 02/19/19 06:46 02/19/19 06:46 - General physical appearance well developed, well nourished, no distress - Eyes PERRL, normal ocular movement, icteric - ENT normal pinna, normal nares, normal mucosa, no hearing loss, no congestion - Head Head exam IM: Present: atraumatic, normal inspection, normocephalic - Neck no masses, no bruits, trachea midline, no lymphadenopathy, no venous distension - Cardiovascular Cardiovascular exam IM: Present: normal rate and rhythm, RRR, +S1, +S2. Absent: JVD, systolic murmur, tachycardia - Respiratory normal expansion, normal respiratory effort, clear to auscultation - Abdomen Abdomen: Present: soft, non tender, tender (mild tenderness around the port sites. Otherwise benign abdomen; no distention; normal bowel sounds), bowel sounds Hernia: Present: none - Genitourinary Present: normal external genitalia - Integumentary Present: no rash, no growths, no abnormal pigmentation - Neurologic Present: normal coordination, normal sensation - Musculoskeletal Present: normal gait, normal posture - Psychiatric Present: oriented to time, oriented to person, oriented to place, speech is normal, memory intact Assessment and Plan (1) Acute pancreatitis due to calculus of common bile duct Urgent consultation by gastroenterology for evaluation and to consider for ERCP Continue nothing by mouth until his disposition is complaining Status: Acute (2) History of cholelithiasis Status: Acute
--- NOTE | 2019-02-19 12:58 | Magnetic Resonance Report ---
CLINICAL INFORMATION: Status post cholecystectomy. Abdominal pain and elevated bilirubin. Evaluate patency of bile ducts and exclude leak TECHNIQUE: Axial T1, phase-in , phase out, SSFSE, lava pre and dynamic post contrast, FSPGR T2 FSPGR coronal pre and post Magnevist and T2 through the upper two thirds of the abdomen. Eovist was utilized for contrast agent to evaluate the biliary system FINDINGS: The intrahepatic, common hepatic and common bile ducts are normal caliber: CBD is 6 mm. The Eovist agent was promptly excreted into the intrahepatic ducts within five minutes. Common bile duct and duodenal visualization by 10 minutes. No evidence of biliary obstruction. No extravasation to suggest bile leak. The liver, both kidneys, adrenal glands, spleen, pancreas and aorta are normal in size, configuration and signal intensity without focal lesion. There is a trace amount of intraperitoneal fluid in the yokasta hepatis region as expected in the postoperative period. The stomach and visualized small/large bowel are normal. Soft tissues of the abdomen wall unremarkable IMPRESSION: Normal exam - no evidence of biliary leak and the bile ducts show normal clearance within 10 minutes. No evidence of choledocholithiasis Interpreted and Authenticated by: Mayo Bunch 02/19/19
--- NOTE | 2019-02-19 13:04 | Internal Medicine Consult Note ---
Medical - CN: HPI - Data of Consult Patient: new to practice Consult date: 02/19/19 Requesting physician: Percy Jauregui Primary Care Provider: Told - Consult Narrative Reason for consult: Suspected choledocholithiasis. History of present illness: Ms. Oliva is a 23 year old F who underwent laparoscopic cholecystectomy for cholelithiasis with acute cholecystitis on February 07, 2019. At the time of her operation, Dr Jauregui noted a stone obstructing the neck of the cystic duct; however, because her bilirubin and alkaline phosphatase were normal, no intraoperative cholangiogram was obtained. She did well until 2 days ago when she developed nausea, vomiting and epigastric pain with a total bilirubin 4.7, ALP 317, AST/ALT 265/563 and lipase 9610. MRCP showed no biliary dilatation and no evidence of retained stone or biliary stricture. She has felt significantly better today with improvement in bilirubin 2.0, ALP 247, AST/ALT 161/426, lipase 2000. CC: Percy Jauregui MD Medical - CN: H Medical history: Post depression Surgical history: Cholecystectomy, tonsillectomy, appendectomy Family history: reviewed and not pertinent Social history: Lives with criss. They have a 7 month old baby. No tobacco or recreational drug use. Occasional ETOH. Functional capacity: independent ambulation Smoking status: Never smoker Drug use: none Alcohol use: occasionally Medical - CN: Meds Home Medications Medication Instructions Recorded Confirmed Type HYDROcodone/APAP 10/325MG [[place] 1 tab PO Q4H PRN #42 tab 02/08/19 02/19/19 Rx 10-325Mg] Allergies Allergy/AdvReac Type Severity Reaction Status Date / Time adhesive tape AdvReac Mild Hives Verified 02/07/19 07:08 hydromorphone [From Dilaudid] AdvReac Mild Itching Verified 02/06/19 17:07 Medical - CN: Exam - Constitutional Vitals: Temp Pulse Resp BP Pulse Ox 99.3 F H 89 16 110/72 98 02/19/19 12:00 02/19/19 04:00 02/19/19 12:00 02/19/19 12:00 02/19/19 12:00 General appearance: average body habitus, no acute distress - Head Head exam: Present: atraumatic, normal inspection, normocephalic - Eye Eye exam: Present: normal appearance. Absent: scleral icterus - Neck Neck exam: Present: normal inspection. Absent: lymphadenopathy, thyromegaly - Respiratory Respiratory exam: Present: normal respiratory exam, CTAB - Cardiovascular Cardiovascular exam: Present: normal rate and rhythm, RRR. Absent: clicks, rubs, systolic murmur - GI/Abdominal GI/Abdominal exam: Present: normal bowel sounds, soft. Absent: mass, organomegaly, tenderness Additional comments: mild tenderness over laparoscopic incisions but no epigastric tenderness or RUQ tenderness - Extremities Exam Extremities exam: Present: normal capillary refill, normal inspection, Foot pink and warm. Absent: pedal edema - Neurological Exam Neurological exam: Present: alert - Psychiatric Psychiatric exam: Present: normal affect, normal mood - Skin Skin exam: Present: dry, normal color, warm Medical - CN: Result - Labs CBC & Chem 7: 02/19/19 07:46 02/19/19 07:46 Labs: Short CBC 02/18/19 02/19/19 Range/Units 23:48 07:46 WBC 5.8 3.9 L (4.5-11.0) K/mcL Hgb 16.3 H 14.2 (12.0-15.0) g/dL Hct 49.3 H 42.9 (36.0-48.0) % Plt Count 192 153 (140-440) K/mcL BMP 02/18/19 02/19/19 23:48 07:46 Sodium 136 134 Potassium 4.0 4.1 Chloride 96 98 Carbon Dioxide 25 24 BUN 6 5 L Creatinine 0.6 0.5 L Glucose 120 H 106 H Calcium 10.0 9.0 Liver Function 02/18/19 02/19/19 Range/Units 23:48 07:46 Total Bilirubin 4.7 H 2.0 H (0.0-1.0) mg/dL Direct Bilirubin 0.8 H (0.0-0.3) mg/dL GGT 434 H (5-36) U/L AST 265 H 161 H (0-37) U/l ALT 563 H 426 H (0-40) U/l Alkaline Phosphatase 317 H 247 H (39-117) U/L Albumin 4.7 4.0 (3.2-5.2) gm/dL Medical - CN: A/P (1) Choledocholithiasis Status: Acute Assessment and plan: I reviewed her case with Dr. Jones. Given her improving abdominal pain, bilirubin, liver enzymes and lipase, we suspect she passed a common duct stone. No further intervention is needed at this time. Should she develop recurrent abdominal pain, jaundice, etc in the future, we would be happy to see her. The likelihood of developing recurrent choledocholithiasis is low. (2) Pancreatitis Status: Acute Assessment and plan: Secondary to now-resolved choledocholithiasis, improving.
[2019-02-20] MEDS: LACTATED RINGERS 1,000 ML IV SCH ×2 (02:16→04:14)
[2019-02-20 05:52] LABS: Basophils # (Auto) 0 K/mcL (0.0-0.3); Basophils % (Auto) 0.2 % (0.0-2.0); Eosinophils # (Auto) 0 K/mcL (0.0-0.7); Eosinophils % (Auto) 1.2 % (0.0-7.0); Granulocytes % (Auto) 43.2 % (38.0-78.0); Hematocrit 36.3 % (36.0-48.0); Hemoglobin 12.5 g/dL (12.0-15.0); Lymphocytes # (Auto) 1.5 K/mcL (1.5-4.8); Lymphocytes % (Auto) 48.3 % (15.5-49.0); Mean Corpuscular HGB Conc 34.5 g/dL (31.0-36.0); Monocytes # (Auto) 0.2 K/mcL (0.1-0.9); Monocytes % (Auto) 7.1 % (1.0-12.0); Platelet Count 114 K/mcL (140-440); Red Cell Distribution Width 12.4 % (11.5-14.5); WBC 3.2 K/mcL (4.5-11.0)
[2019-02-20 06:00] LABS: ALT/SGPT 304 U/l (0-40); AST/SGOT 90 U/l (0-37); Albumin 3.5 gm/dL (3.2-5.2); Albumin/Globulin Ratio 1.5 (1.0-2.3); Alkaline Phosphatase 189 U/L (39-117); Amylase 109 U/L (28-100); Bilirubin,Direct 0.6 mg/dL (0.0-0.3); Bilirubin,Total 1.7 mg/dL (0.0-1.0); Blood Urea Nitrogen 4 mg/dl (6-20); Calcium 8.4 mg/dl (8.6-10.4); Carbon Dioxide 21 mmol/L (22-30); Chloride 95 mmol/L (96-108); Gamma Glutamyl Transpeptidase 300 U/L (5-36); Globulin 2.3 gm/dL (2.2-3.7); Glomerular Filtration Rate 147; Glucose 101 mg/dL (70-105); Lactate Dehydrogenase 116 U/L (94-250); Lipase 177 U/L (7-60); Magnesium 1.4 mg/dL (1.6-2.5); Phosphorous 3.5 mg/dL (2.7-4.5); Potassium 3.5 mmol/L (3.3-5.1); Sodium 128 mmol/L (133-145); Triglycerides 239 mg/dl (<150)
--- NOTE | 2019-02-20 13:19 | Discharge Summary ---
Providers - Providers Patient information: Note initiated : 02/20/19 at 1:16 pm Service Date, if different from initiated Date: [] Patient: Yony Oliva 23 y/o F admitted on 02/19/19 for nausea, vomiting, abd pain. Chief Complaint: [] Date of admission: 02/18/19 Discharge date: 02/20/19 Attending physician: Percy Jauregui Hospitalization Hospital course: 23-year-old female status post laparoscopic cholecystectomy for gallstone disease. On 07 February. She was doing well until one day prior to admission when she developed nausea followed by severe abdominal pain, nausea and vomiting. She was seen in the emergency room with findings of acute pancreatitis with associated elevated LFTs. She was monitored overnight and had a follow-up MRI. The MRI showed a 6 mm duct without a filling defect. She had an EOVIST stUDY which revealed normal flow through the common bile duct into the duodenum without filling defect and without leak. The patient's LFTs trended down and her bilirubin is now 1.7 with AST 90, ALT 304, alkaline phosphatase 189, amylase 107, lipase 177. Patient is asymptomatic and is stable for discharge home Discharge diagnosis: biliary pancreatitis Secondary discharge diagnosis: History of cholelithiasis status post cholecystectomy. Transient common bile duct stone, resolved Reason for admission: abdominal pain, nausea and vomiting Procedures: None Pertinent studies/significant findings: MRCP MRI EOVIST STUDY Complications: None Exam Temp Pulse Resp BP Pulse Ox 97.4 F 60 18 109/69 98 02/20/19 12:00 02/20/19 04:00 02/20/19 12:00 02/20/19 12:00 02/20/19 12:00 - General physical appearance well developed, well nourished, no distress - Eyes PERRL, normal ocular movement, icteric (still with mild jaundice but bilirubin is decreased to 1.7) - ENT normal pinna, normal nares, normal mucosa, no hearing loss, no congestion - Head Head exam IM: Present: atraumatic, normocephalic - Neck no masses, no bruits, trachea midline, no lymphadenopathy, no venous distension - Cardiovascular Cardiovascular exam IM: Present: normal rate and rhythm - Respiratory normal expansion, normal respiratory effort, clear to percussion, clear to auscultation - Abdomen Abdomen: Present: soft, tender (minimal epigastric abdominal tenderness), bowel sounds Hernia: Present: none - Genitourinary Present: normal external genitalia - Integumentary Present: no rash, no growths, no abnormal pigmentation - Neurologic Present: normal coordination, normal sensation - Musculoskeletal Present: normal gait, normal posture - Psychiatric Present: oriented to time, oriented to person, oriented to place, speech is normal, memory intact Discharge Plan - Patient/Caregiver Discharge Instructions Activity: increase activity as tolerated Diet: Low Fat Additional Instructions: Have inpatient panel done 2 days before return to the office F/U IN THE OFFICE IN 1 WEEK--- 01 MARCH 2019.Call for an appointment - Follow up Plan Follow up with: Mayo Little DO [Primary Care Provider] - Esau Jones MD [Physician] - Percy Jauregui MD [Physician] - Disposition: Home, Self-Care Prognosis: Good Rehab Potential: Good I certify that the patient requires SNF services.: No Overall status at discharge: patient is progressing back to baseline Pending Studies Resuscitation Status Full Code Diet Regular Diet Start Sat Feb 21 828 Morphine Sulfate (Morphine) 0 mg IV Q2HP PRN PRN Reason: PAIN LEVEL > 6 Last Admin: 02/19/19 08:15 Dose: 2 mg Documented by: BRIDGETT Ondansetron HCl (Zofran) 4 mg IV Q4HP PRN PRN Reason: Nausea And Vomiting Last Admin: 02/19/19 08:14 Dose: 4 mg Documented by: BRIDGETT Shift Summary 02/20/19 04:41 Shift Summary by Dayanna Han Patient slept well this shift. Up ad geovani in room. Denies any pain or nausea this shift. Tolerating Clear Liquid Diet. Voids adequately to the bathroom. Awaiting lab results this AM. For possible discharge today. VSS. Initialized on 02/20/19 04:41 - END OF NOTE
== END 2019-02-20 14:52 | disposition home or self-care (01) | DRG 439 ==
LOC: ED 23:03 → MEDSUR 02-19 02:05
PROVIDERS: ADMIT Family Medicine Adult Medicine; ATTEND Family Medicine Adult Medicine